=== PATIENT | female | born 1995 | race Caucasian/White ===

== ENCOUNTER 2016-10-15 00:40 | Emergency (ER) | payer BC ==
[~2016-10-15] VITALS: Ht 154.9 cm; Wt 54.0 kg
[2016-10-15 00:50] VITALS: TEMP 36.8; Ht 154.9 cm; Wt 54.0 kg
[2016-10-15] MEDS ORDERED: ACETAMINOPHEN 500 MG TAB PO STA (01:13)
[2016-10-15] MEDS ORDERED: ONDANSETRON HOME PACK 4MG OD TAB PO ONE (01:15)
[2016-10-15 01:29] VITALS: BP 123/74; PULSE 70; O2SAT 98
--- NOTE | 2016-10-15 03:45 | EMERGENCY ROOM VISIT NOTE ---
History First contact with patient: 00:57 Chief Complaint: HEAD INJURY (MINOR) Stated Complaint: POSSIBLE CONCUSSION History of Present Illness The patient is a 21 year old female who presents to the Emergency Room with complaints of head injury tonight. Patient states she accidentally hit her head on the thermostat while playing around with her friends. She felt nauseous and threw up twice. She's had no more vomiting. Patient complains of mild headache, 4-10 to the left temporal region where she was hit at. This was an accident. Nothing makes it better or worse. Patient denies loss of conscious, facial pain, dental pain, vision palms, neck pain, chest pain, dyspnea, numbness, tingling. No other complains per patient. Review of Systems See HPI for pertinent positives & negatives. A total of 10 systems reviewed and were otherwise negative. Past Medical/Surgical History None Social History Smoking Status: Current Every Day Smoker Alcohol Use: none Drug Use: none Marital Status: single Occupation Status: [employer] student Current/Historical Medications No Active Prescriptions or Reported Meds Allergies Coded Allergies: No Known Allergies (Unverified , 10/15/16) Physical Exam Vital Signs Date Time Temp Pulse Resp B/P Pulse Ox O2 Delivery O2 Flow Rate FiO2 10/15/16 01:29 70 16 123/74 98 10/15/16 00:50 36.8 104 20 112/71 96 Room Air Pain Rating (0-10): 0 Physical Exam VITALS: Vitals are noted on the nurse's note and reviewed by myself. Vital signs stable. GENERAL: Pleasant female, in no acute distress, nondiaphoretic, well-developed well-nourished. SKIN: The skin was without rashes, erythema, edema, or bruising. There is no tenting of the skin. Capillary reflex less than 2 seconds. HEAD: Normocephalic atraumatic. EARS: External auditory canals clear, tympanic membranes pearly meehan without erythema or effusion bilaterally. EYES: Pupils equal round and reactive to light and accommodation. Conjunctivae without injection, sclerae without icterus. Extraocular movements intact. NOSE: Patent, turbinates without inflammation or discharge. No sinus tenderness. MOUTH: Mucous membranes moist. Pharynx without erythema or exudate. Uvula midline. Airway patent. Tongue does not deviate. NECK: Supple without nuchal rigidity. No lymphadenopathy. No thyromegaly. Cervical spine is nontender. No JVD. HEART: Regular rate and rhythm without murmurs gallops or rubs. LUNGS: Clear to auscultation bilaterally without wheezes, rales or rhonchi. No dullness to percussion. No retractions or accessory muscle use. ABDOMEN: Positive bowel sounds x 4. Normal tympanic percussion. Soft, nontender, without masses or organomegaly. Agarwal sign negative. No guarding or rebound tenderness. MUSCULOSKELETAL: No muscle atrophy, erythema, or edema noted. NEURO: Patient was alert and oriented to person place and time. Normal sensation to light and sharp touch. No focal neurological deficits. Cranial nerves II through XII grossly intact. No pronator drift. Cerebellar exam intact Medical Decision & Procedures Medications Administered Medications (Trade) Dose Ordered Sig/Tramaine Route Start Time Stop Time Status Last Admin Dose Admin Acetaminophen (Tylenol Tab) 1,000 mg NOW STAT PO 10/15/16 01:13 10/15/16 01:14 DC 10/15/16 01:13 1,000 MG ED Course Prior records/ancillary studies reviewed. Triage Nursing notes reviewed. Additional history obtained from friends. The patient's history was concerning for traumatic head injury Differential diagnosis: Etiologies such as concussion, contusion, fracture, subdural hematoma, epidural hematoma, intraparenchymal hemorrhage, as well as other traumatic pathologies were entertained. Physical examination findings: As above. ER treatment provided: P.o. Tylenol Zofran ODT On reassessment the patient felt better. Diagnostics interpreted by me: Deferred It appears the patient has a concussion. I discussed the risks and the benefits of CT scanning. Clinically the patient is doing well and does not appear to have a significant underlying injury. The pt felt comfortable with conservative observation with the understanding if the clinical picture change that imaging may be necessary at a later time. I gave my usual and customary discussion regarding this issue. Patient was advised if symptoms persist to follow-up concussion clinic here in town or here in the ER sooner for headache, fevers, vomiting, worsening signs or symptoms or as needed. Patient was neurovascularly and neurologically intact. She is well-appearing. She was counseled on head injury signs and symptoms and verbalized understanding. By the evaluation outlined above emergent etiologies such as fracture, subdural hematoma, epidural hematoma, intraparenchymal hemorrhage, as well as others were deemed relatively unlikely. The pt informed about the findings as listed above. All questions were answered and pleased with the treatment. Return instructions were outlined and the patient was discharged in stable condition. Outpatient Prescription Management: gina Referral: The patient was referred back to their primary care physician for follow-up in 2 to 3 days for a recheck of the current condition. Medical Decision As above Impression Primary Impression: Closed head injury Departure Information Dispostion Home / Self-Care Condition FAIR Prescriptions No Active Prescriptions or Reported Meds Forms HOME CARE DOCUMENTATION FORM, School Instructions, Return To School: 1 day IMPORTANT VISIT INFORMATION Patient Instructions [facility], ED Head Injury Closed Additional Instructions Read head injury handout and return for any symptoms. Tylenol 1000 mg as needed for pain (Maximum 3000 mg Tylenol in 24 hr period). Avoid alcohol and contact sports/activities for one week and follow up with family doctor prior to returning to these activities if still symptomatic. Ice and elevate head. If your symptoms persist more than a week then follow up with the concussion clinic. Call [phone]. Return to ER sooner for headache, fevers, confusion, worsening signs or symptoms or as needed. School Instructions Return To School: 1 day Problem Qualifiers Primary Impression: Closed head injury Encounter type: initial encounter Qualified Codes: S09.90XA - Unspecified injury of head, initial encounter
== END 2016-10-15 01:30 | disposition home or self-care (01) ==
LOC: C.EDB 00:40 → C.EDC 01:30
DX: S09.90XA Unspecified injury of head, initial encounter (principal); R11.2 Nausea with vomiting, unspecified; W22.8XXA Striking against or struck by other objects, initial encounter; F17.200 Nicotine dependence, unspecified, uncomplicated

== ENCOUNTER → 2016-12-31 | Outpatient (CLI) | payer BC ==
[2016-12-31 12:14] LABS: BASO % 0.5 %; BASO ABS # 0.03 K/uL (0-0.2); COMPLETE YES; EOS % 2.5 %; HEMATOCRIT 37.5 % (37-47); IG% 0.2 %; LYMPH % 34.7 %; LYMPH ABS # 1.91 K/uL (1.2-3.4); MEAN CELL VOLUME 90.4 fL (80-100); MEAN CORPUSCULAR HEMOGLOBIN 29.9 pg (25-34); MEAN CORPUSCULAR HGB CONC 33.1 g/dl (32-36); NEUT % 54.1 %; PLATELET COUNT 208 K/uL (130-400); RED BLOOD COUNT 4.15 M/uL (4.2-5.4); WHITE BLOOD COUNT 5.51 K/uL (4.8-10.8)
[2016-12-31 12:26] LABS: URINE APPEARANCE CLEAR (CLEAR); URINE BILIRUBIN NEG (NEG); URINE COLOR YELLOW; URINE EPITHELIAL CELL AUTO 20-30 /lpf (0-5); URINE NITRITE NEG (NEG); URINE SPECIFIC GRAVITY 1.021 (1.000-1.030); UROBILINOGEN NEG (NEG)
[2016-12-31 12:40] LABS: MANUAL MICROSCOPIC REQUIRED? NO; REVIEW REQ? NO
[2016-12-31 13:55] LABS: LYME DISEASE AB IGG NEG (NEG)
[2016-12-31 13:58] LABS: LYME DISEASE AB IGM NEG (NEG)
[2016-12-31 14:16] LABS: ALT/SGPT 23 U/L (12-78); AST/SGOT 11 U/L (15-37); BLOOD UREA NITROGEN 12 mg/dl (7-18); BUN/CREATININE RATIO 17.1 (10-20); CALCIUM 8.6 mg/dl (8.5-10.1); CARBON DIOXIDE 24 mmol/L (21-32); CHLORIDE 108 mmol/L (98-107); CHOLESTEROL 110 mg/dl (0-200); CREATININE 0.72 mg/dl (0.60-1.20); GLUCOSE 69 mg/dl (70-99); SODIUM 139 mmol/L (136-145); TRIGLYCERIDES 59 mg/dl (0-150); VERY LOW DENSITY LIPOPROT CALC 12 mg/dl
[2016-12-31 14:21] LABS: ALB/GLOB RATIO 1.3 (0.9-2); ALKALINE PHOSPHATASE 54 U/L (45-117); FERRITIN 18.2 ng/ml (8.0-388.0); HDL CHOLESTEROL 56 mg/dl; LDL CHOLESTEROL CALCULATED 42 mg/dl
== END | disposition home or self-care (01) ==
LOC: C.LAB1850 09:23
DX: R53.83 Other fatigue (principal); Z13.220 Encounter for screening for lipoid disorders

== ENCOUNTER → 2017-08-11 | Outpatient (CLI) | payer BC ==
--- NOTE | 2017-08-11 09:15 | DIAGNOSTIC IMAGING REPORT ---
GALLBLADDER-ABD LIMITED CLINICAL HISTORY: GALLBLADDER-ABD LIMITED nausea. Pain. TECHNIQUE: Ultrasound COMPARISON STUDY: None FINDINGS: Normal gallbladder. Common bile duct 4 mm. Liver is uniform. Pancreas and right kidney are unremarkable. IMPRESSION: Normal study The above report was generated using voice recognition software. It may contain grammatical, syntax or spelling errors. Electronically signed by: Jimbo Gama M.D. 08/11/2017 9:13 AM Dictated Date/Time: 08/11/2017 9:13 AM
== END | disposition home or self-care (01) ==
LOC: C.ULTR 08:39
DX: R10.9 Unspecified abdominal pain (principal); R11.0 Nausea

== ENCOUNTER → 2017-09-09 | Outpatient (CLI) | payer BC ==
[~2017-09-09] MED LIST: SINCALIDE INJ 1.1 MCG in SODIUM CHLORIDE 0.9% 100ML 100 ML IV SCH
--- NOTE | 2017-09-09 10:04 | DIAGNOSTIC IMAGING REPORT ---
NUCLEAR MEDICINE HEPATIC BILIARY SCAN WITH EJECTION FRACTION ANALYSIS CLINICAL HISTORY: Persistent abdominal pain COMPARISON STUDY: Gallbladder ultrasound dated August 11, 2017 FINDINGS: The patient was injected with 5.5 mCi of technetium 99m Choletec. Sequential anterior imaging was performed. The gallbladder was first visualized on the 10 minute image. At 1 hour, the patient was administered 1.1 mcg of sincalide utilizing a 30 minute infusion. The gallbladder ejection fraction was normal measuring 97%. There was normal passage of activity into small bowel. IMPRESSION: Normal study. No evidence of cystic duct obstruction. Normal gallbladder ejection fraction of 97%. Electronically signed by: Gil Acevedo M.D. 09/09/2017 10:03 AM Dictated Date/Time: 09/09/2017 10:00 AM
== END | disposition home or self-care (01) ==
LOC: C.NUCL 07:37
DX: R10.9 Unspecified abdominal pain (principal)

== ENCOUNTER 2017-10-14 13:13 | Emergency (ER) | payer BC ==
[~2017-10-14] VITALS: Ht 157.5 cm; Wt 56.2 kg
[2017-10-14 13:21] VITALS: Ht 157.5 cm; Wt 56.2 kg
[2017-10-14 14:53] VITALS: TEMP 36.7
[2017-10-14] MEDS ORDERED: FERR1TAB23 PO (15:31)
[2017-10-14] MEDS ORDERED: CHOL1000 PO (15:32)
[2017-10-14] MEDS ORDERED: PRLSR20 PO (15:33)
[2017-10-14 15:51] LABS: BASO % 0.5 %; BASO ABS # 0.03 K/uL (0-0.2); EOS % 1.7 %; HEMATOCRIT 38.7 % (37-47); HEMOGLOBIN 13.4 g/dL (12.0-16.0); IG# 0.01 K/uL (0.00-0.02); LYMPH % 35.8 %; LYMPH ABS # 2.07 K/uL (1.2-3.4); MEAN CELL VOLUME 89.4 fL (80-100); MEAN CORPUSCULAR HEMOGLOBIN 30.9 pg (25-34); MEAN CORPUSCULAR HGB CONC 34.6 g/dl (32-36); MEAN PLATELET VOLUME 10.9 fL (7.4-10.4); MONO % 9.5 %; MONO ABS # 0.55 K/uL (0.11-0.59); NEUT % 52.3 %; NEUT ABS # 3.02 K/uL (1.4-6.5); PLATELET COUNT 217 K/uL (130-400); RED CELL DISTRIBUTION WIDTH CV 12.4 % (11.5-14.5); RED CELL DISTRIBUTION WIDTH SD 40.6 fL (36.4-46.3); WHITE BLOOD COUNT 5.78 K/uL (4.8-10.8)
[2017-10-14 16:00] LABS: PTT PATIENT 25.7 SECONDS (21.0-31.0)
[2017-10-14] MEDS ORDERED: KETOROLAC TROMETHAMINE 30 MG/ML VIAL IV STA (16:00)
[2017-10-14 16:10] LABS: CREATININE 0.72 mg/dl (0.60-1.20); POTASSIUM 3.5 mmol/L (3.5-5.1)
--- NOTE | 2017-10-14 16:19 | DIAGNOSTIC IMAGING REPORT ---
CHEST 2 VIEWS ROUTINE HISTORY: 22 years-old Female cp eval for pna acute atypical chest pain with concern for pneumonia. COMPARISON: None available TECHNIQUE: PA and lateral views of the chest FINDINGS: Cardiomediastinal and hilar silhouettes are within normal limits. There is no pneumothorax, pleural effusion, focal airspace consolidation or overt pulmonary edema. The bones of the chest appear grossly intact. IMPRESSION: No acute process. The above report was generated using voice recognition software. It may contain grammatical, syntax or spelling errors. Electronically signed by: Dakota Chapman M.D. 10/14/2017 4:18 PM Dictated Date/Time: 10/14/2017 4:16 PM
[2017-10-14] MEDS ORDERED: OPTIRAY 320 IV PRN (19:00)
--- NOTE | 2017-10-14 19:11 | DIAGNOSTIC IMAGING REPORT ---
(CHEST FOR PE) ANGIO WITH CT DOSE: 170.75 mGy.cm HISTORY: 22 years-old Female with . Acute shortness of breath and atypical chest pain with concern for pneumonia. TECHNIQUE: Multiple CTA images of the chest were obtained after the intravenous administration of 81 ml Optiray 320. Coronal and sagittal MIPS were obtained from the axial data set and were submitted for review. A dose lowering technique was utilized adhering to the principles of ALARA. COMPARISON: Chest radiograph of same day FINDINGS: CTA: Heart is normal in size without pericardial effusion. Left heart structures are not well opacified. No aortic aneurysm or dissection identified. The imaged great vessels appear unremarkable and are patent. The pulmonary arterial tree is opacified to level of the proximal subsegmental branches and demonstrates no focal filling defects to suggest pulmonary thromboembolic disease. CT CHEST: Thyroid is homogeneous without dominant nodule. No pathologic adenopathy of the chest identified. Residual thymic tissue of the anterior mediastinum. Imaged breast parenchyma appears unremarkable. No pneumothorax, pleural effusion or focal airspace consolidation. Central airways are patent. Minimal linear subsegmental bibasilar atelectasis. No acute abnormality of the imaged upper abdomen. Bones appear intact. IMPRESSION: 1. No acute intrathoracic abnormality identified, specifically no acute aortic pathology or evidence of pulmonary thromboembolic disease. 2. No focal airspace consolidation or pathologic adenopathy. The above report was generated using voice recognition software. It may contain grammatical, syntax or spelling errors. Electronically signed by: Dakota Chapman M.D. 10/14/2017 7:10 PM Dictated Date/Time: 10/14/2017 7:04 PM
[2017-10-14 19:44] VITALS: BP 97/55; PULSE 63; O2SAT 97
--- NOTE | 2017-10-14 21:43 | EMERGENCY ROOM VISIT NOTE ---
History Report prepared by Kelechi: Ras Clifford Under the Supervision of: Dr. Rafat Vigil M.D. First contact with patient: 15:04 Chief Complaint: CHEST PAIN Stated Complaint: CHEST TIGHTNESS AND SHORTNESS OF BREATH Nursing Triage Summary: Chest pain post endoscopy History of Present Illness The patient is a 22 year old female who presents to the Emergency Room with complaints of constant chest pain and shortness of breath that she first noticed after an endoscopy procedure performed on October 09, 5 days ago. The patient notes that she had the endoscopy performed to search for Ulcers secondary to chronic right mid abdominal pain. The procedure did find 2 peripheral ulcers and she was started on Prilosec. The patient states that she woke up from the procedure with chest pain that was localized to the center of her chest. She describes the sensation as a "constant tight feeling." The pain does not radiate anywhere, but she does note that her shortness of breath is worsened with exertion. She has been becoming unusually short of breath with walking short distances. The patient denies any previous episodes of such symptoms. She also denies any history of clotting or control use. She does not have any family history of clotting disorders or early onset cardiac disease either. There has not been any cough, fever, black/tarry stools, vomiting, or diarrhea. The patient does have a history of anemia. Her LNMP was on September 23. Her grandmother had a DVT after shoulder surgery. Source of History: patient Onset: 5 days COMMERCIAL FIELD INSPECTOR Position: chest (Centralized) Quality: other ("tight") Timing: constant Modifying Factors (Worsening): exertion Associated Symptoms: + SOB, + abdominal pain, No nausea, No vomiting, No melena, No diarrhea Review of Systems See HPI for pertinent positives & negatives. A total of 10 systems reviewed and were otherwise negative. Past Medical & Surgical Medical Problems: (1) Anemia Anemia Social History Smoking Status: Never Smoker Alcohol Use: none Drug Use: none Marital Status: single Occupation Status: [employer] student Current/Historical Medications Scheduled Cholecalciferol (Vitamin D3), 3,000 UNITS PO DAILY Ferrous Sulfate (Iron), 325 MG PO DAILY Omeprazole (Prilosec), 20 MG PO DAILY Allergies Coded Allergies: No Known Allergies (Unverified , 10/15/16) Physical Exam Vital Signs Date Time Temp Pulse Resp B/P (MAP) Pulse Ox O2 Delivery O2 Flow Rate FiO2 4/10/18 19:44 63 18 97/55 97 Room Air 10/14/17 18:19 62 10/14/17 18:11 66 16 98/49 98 10/14/17 16:01 61 18 89/48 98 Room Air 10/14/17 14:53 36.7 76 16 93/60 97 Room Air 10/14/17 13:21 36.8 68 20 95/60 98 Room Air Physical Exam Constitutional: Vital signs reviewed. Eyes: Pupils are equal round reactive to light. Conjunctiva are noninjected. ENT: Pharynx is clear without erythema or exudate. Mucous membranes are moist. Neck supple without meningeal signs. Respiratory: Clear to auscultation bilaterally. Breath sounds are equal bilaterally. Cardiovascular: Regular rate and rhythm. No rubs or gallops. GI: Soft, nondistended and nontender. Bowel sounds are present. Musculoskeletal: No peripheral edema. No lower extremity tenderness. There is tenderness over the anterior chest wall. This is the same pain as she has been having. Integumentary: No cyanosis. Neurological: The patient is awake and alert. No focal deficits. Psychiatric: Normal affect. Medical Decision & Procedures ER Provider Diagnostic Interpretation: Radiology results as stated below per my review and the radiologist's interpretation: CHEST 2 VIEWS ROUTINE HISTORY: 22 years-old Female cp eval for pna acute atypical chest pain with concern for pneumonia. COMPARISON: None available TECHNIQUE: PA and lateral views of the chest FINDINGS: Cardiomediastinal and hilar silhouettes are within normal limits. There is no pneumothorax, pleural effusion, focal airspace consolidation or overt pulmonary edema. The bones of the chest appear grossly intact. IMPRESSION: No acute process. The above report was generated using voice recognition software. It may contain grammatical, syntax or spelling errors. Electronically signed by: Dakota Chapman M.D. 10/14/2017 4:18 PM Dictated Date/Time: 10/14/2017 4:16 PM (CHEST FOR PE) ANGIO WITH CT DOSE: 170.75 mGy.cm HISTORY: 22 years-old Female with . Acute shortness of breath and atypical chest pain with concern for pneumonia. TECHNIQUE: Multiple CTA images of the chest were obtained after the intravenous administration of 81 ml Optiray 320. Coronal and sagittal MIPS were obtained from the axial data set and were submitted for review. A dose lowering technique was utilized adhering to the principles of ALARA. COMPARISON: Chest radiograph of same day FINDINGS: CTA: Heart is normal in size without pericardial effusion. Left heart structures are not well opacified. No aortic aneurysm or dissection identified. The imaged great vessels appear unremarkable and are patent. The pulmonary arterial tree is opacified to level of the proximal subsegmental branches and demonstrates no focal filling defects to suggest pulmonary thromboembolic disease. CT CHEST: Thyroid is homogeneous without dominant nodule. No pathologic adenopathy of the chest identified. Residual thymic tissue of the anterior mediastinum. Imaged breast parenchyma appears unremarkable. No pneumothorax, pleural effusion or focal airspace consolidation. Central airways are patent. Minimal linear subsegmental bibasilar atelectasis. No acute abnormality of the imaged upper abdomen. Bones appear intact. IMPRESSION: 1. No acute intrathoracic abnormality identified, specifically no acute aortic pathology or evidence of pulmonary thromboembolic disease. 2. No focal airspace consolidation or pathologic adenopathy. The above report was generated using voice recognition software. It may contain grammatical, syntax or spelling errors. Electronically signed by: Dakota Chapman M.D. 10/14/2017 7:10 PM Dictated Date/Time: 10/14/2017 7:04 PM Laboratory Results 10/14/17 15:34 Red Blood Count 4.33, Mean Corpuscular Volume 89.4, Mean Corpuscular Hemoglobin 30.9, Mean Corpuscular Hemoglobin Concent 34.6, Mean Platelet Volume 10.9, Neutrophils (%) (Auto) 52.3, Lymphocytes (%) (Auto) 35.8, Monocytes (%) (Auto) 9.5, Eosinophils (%) (Auto) 1.7, Basophils (%) (Auto) 0.5, Neutrophils # (Auto) 3.02, Lymphocytes # (Auto) 2.07, Monocytes # (Auto) 0.55, Eosinophils # (Auto) 0.10, Basophils # (Auto) 0.03 10/14/17 15:34 Test 10/14/17 15:34 10/14/17 15:42 10/14/17 15:54 White Blood Count 5.78 K/uL (4.8-10.8) Red Blood Count 4.33 M/uL (4.2-5.4) Hemoglobin 13.4 g/dL (12.0-16.0) Hematocrit 38.7 % (37-47) Mean Corpuscular Volume 89.4 fL (80-100) Mean Corpuscular Hemoglobin 30.9 pg (25-34) Mean Corpuscular Hemoglobin Concent 34.6 g/dl (32-36) Platelet Count 217 K/uL (130-400) Mean Platelet Volume 10.9 fL (7.4-10.4) Neutrophils (%) (Auto) 52.3 % Lymphocytes (%) (Auto) 35.8 % Monocytes (%) (Auto) 9.5 % Eosinophils (%) (Auto) 1.7 % Basophils (%) (Auto) 0.5 % Neutrophils # (Auto) 3.02 K/uL (1.4-6.5) Lymphocytes # (Auto) 2.07 K/uL (1.2-3.4) Monocytes # (Auto) 0.55 K/uL (0.11-0.59) Eosinophils # (Auto) 0.10 K/uL (0-0.5) Basophils # (Auto) 0.03 K/uL (0-0.2) RDW Standard Deviation 40.6 fL (36.4-46.3) RDW Coefficient of Variation 12.4 % (11.5-14.5) Immature Granulocyte % (Auto) 0.2 % Immature Granulocyte # (Auto) 0.01 K/uL (0.00-0.02) Prothrombin Time 10.5 SECONDS (9.0-12.0) Prothromb Time International Ratio 1.0 (0.9-1.1) Activated Partial Thromboplast Time 25.7 SECONDS (21.0-31.0) Partial Thromboplastin Ratio 1.0 Anion Gap 6.0 mmol/L (3-11) Est Creatinine Clear Calc Drug Dose 97.8 ml/min Estimated GFR () 138.7 Estimated GFR (Non- 119.7 BUN/Creatinine Ratio 12.4 (10-20) Calcium Level 9.0 mg/dl (8.5-10.1) Bedside D-Dimer 109 ng/mlFEU (0-450) Bedside Troponin I < 0.030 ng/ml (0-0.045) Laboratory results as reviewed by me. Medications Administered Medications (Trade) Dose Ordered Sig/Tramaine Route Start Time Stop Time Status Last Admin Dose Admin Ketorolac Tromethamine (Toradol Inj) 10 mg NOW STAT IV 10/14/17 16:00 10/14/17 16:01 DC 10/14/17 16:07 10 MG ECG Per My Interpretation Indication: chest pain Rate (beats per minute): 69 Findings: other (No SHIRA No PVCs) ED Course 1507: The patient was evaluated in room B3. A complete history and physical exam was performed. 1600: Ordered Toradol 10 mg IV. 1707: The patient states that her chest pain has improved with Toradol. I discussed the test results with the patient and her mother. 1723: I discussed the option of a CT of the chest with the patient. I elaborated the risks and benefits of the study. The patient does not currently want the CT, but she will discuss it with her mother. 1728: I discussed the case with Dr. Mar[facility]. He states that there is nothing GI nguyen that he could think of to cause the patient 's symptoms. 1804: I discussed the case with the patient and her mother at this time. They agreed to the CT scan. Mom says that her grandmother had a DVT after a procedure. She also states that the patient is normally hypotensive. 1830: Patient is still waiting for IV Team at this time. Medical Decision This is a 22-year-old female presents with chest pain and shortness of breath after endoscopy. Differential diagnosis includes pneumomediastinum, esophageal rupture, pulmonary embolism, costochondritis, pleurisy, esophagitis. I did perform a limited focused review of portions of the patient's old chart on the electronic medical record. The patient has had no recent pertinent visits to this hospital. I did evaluate the patient as noted above. Patient is presenting with chest pain with dyspnea on exertion after an endoscopy 5 days ago. She had no symptoms prior to that. Her only risk factor for pulmonary embolism is her family history. She does have reproducible chest pain on examination. She states it is the exact pain that she has been having for the past 5 days. IV access was established. The patient was placed on a continuous cardiac exercise physiologist. I did order and personally review the patient's 12-lead EKG and chest x-ray as described above. Her twelve-lead EKG is unremarkable. Chest x-ray does not show any pneumomediastinum or infiltrate. I did order and review the patient's blood work as noted in the electronic medical record. Troponin and d- dimer are negative. I did treat patient with Toradol IV. I did reevaluate the patient. She states she feels better after Toradol. The chest pain appears to be musculoskeletal but I cannot explain the dyspnea with exertion that she has been experiencing. I did discuss the case with the production material coordinator on-call who stated that he was not concerned for any GI etiology for her chest pain. He did express some concern for possible PE. I did have a further discussion with the patient and her mother regarding risks and benefits of CT scanning. After deliberation with them they did agree to CAT scan of the chest to rule out PE. I did order a CT of the chest. I did review the images myself as well as the radiology report as described above. No acute abnormality was found. I did discuss the test results with the patient. She was advised to follow-up with [facility] for further evaluation. She was discharged in good condition. Medication Reconcilliation Current Medication List: was personally reviewed by me Blood Pressure Screening Patient's blood pressure: Low blood pressure Consults Time Called: 1722 Consulting Physician: Dr. [facility] Returned Call: [phone] I discussed the case with Dr. [facility]. He states that there is nothing GI based that he could think of to cause the patient's current symptoms. Impression Primary Impression: Acute chest pain Additional Impression: Dyspnea on exertion Scribe Attestation The scribe's documentation has been prepared under my direct and personally reviewed by me in its entirety. I confirm that the note above accurately reflects all work, treatment, procedures, and medical decision making performed by me. Departure Information Dispostion Home / Self-Care Referrals Kevin Velazquez Jr,D.O. (PCP) Forms HOME CARE DOCUMENTATION FORM, IMPORTANT VISIT INFORMATION Patient Instructions My [facility] Additional Instructions You have been examined and treated today on an emergency basis only. This is not a substitute for, or an effort to provide, complete comprehensive medical care. It is impossible to recognize and treat all injuries or illnesses in a single emergency department visit. It is therefore important that you follow up closely with your physician or [facility]. Call as soon as possible for an appointment. Return for worsening symptoms or if you develop fever, vomiting, lightheadedness, difficulty eating or drinking, or any other concerning symptoms. Problem Qualifiers
== END 2017-10-14 19:52 | disposition home or self-care (01) ==
LOC: C.EDB 13:16
DX: R07.9 Chest pain, unspecified (principal); R06.00 Dyspnea, unspecified; D64.9 Anemia, unspecified; Z79.899 Other long term (current) drug therapy

== ENCOUNTER 2017-11-26 05:38 | Day surgery (SDC) | payer BC ==
[2017-11-19 16:22] VITALS: Ht 157.5 cm; Wt 56.4 kg
[2017-11-26] VITALS (11 sets, daily range): BP systolic 92–104; BP diastolic 52–70; PULSE 59–98; TEMP 36.6–36.7; O2SAT 97–100
[~2017-11-26] VITALS: Ht 157.5 cm; Wt 56.4 kg
[~2017-11-26 05:38] MED LIST changes: +CHOL1000 PO; +FERR1TAB23 PO; +PRLSR20 PO; -SINCALIDE INJ 1.1 MCG in SODIUM CHLORIDE 0.9% 100ML 100 ML IV SCH
[2017-11-26] MEDS ORDERED: LACTATED RINGER'S 1000ML 1,000 ML IV SCH (06:00)
[2017-11-26] MEDS ORDERED: CEFUROXIME IV 1,500 MG in DEXTROSE 5% 100ML IV SCH (06:00)
[2017-11-26] MEDS ORDERED: CONRAY 60% 50 ML VIAL ONE (06:33)
[2017-11-26] MEDS ORDERED: BUPIVACAINE 0.5 % 5 MG/1 ML PF 10ML VIAL ONE ×2 (06:34→06:51)
--- NOTE | 2017-11-26 06:48 | History & Physical Bridge Note ---
H&P Re-Evaluation Bridge Note: I have examined the patient, reviewed the History & Physical and in the interval since the performance of the History & Physical I have noted the following changes of clinical significance: No changes noted
[2017-11-26] MEDS ORDERED: DEXAMETHASONE SOD INJ 4 MG/ML VIAL ONE (06:52)
[2017-11-26] MEDS ORDERED: LIDOCAINE HCL 2% 2 ML VIAL (20MG/ML) ONE (06:52)
[2017-11-26] MEDS ORDERED: PROPOFOL IV EMULSION 10 MG/ML 20 ML VIAL ONE (06:52)
[2017-11-26] MEDS ORDERED: FENTANYL CITRATE INJ 50 MCG/1 ML 2 ML VIAL ONE ×2 (06:52→07:27)
[2017-11-26] MEDS ORDERED: ONDANSETRON INJ 2 MG/ML 2 ML VIAL ONE ×2 (06:52→07:26)
[2017-11-26] MEDS ORDERED: NEOSTIGMINE METHYLSULFATE 5 MG/5 ML SYR ONE (06:52)
[2017-11-26] MEDS ORDERED: GLYCOPYRROLATE INJ 0.2 MG/ML VIAL ONE ×2 (06:52→07:44)
[2017-11-26] MEDS ORDERED: MIDAZOLAM HCL 1 MG/ML 2ML VIAL ONE (06:52)
[2017-11-26] MEDS ORDERED: ROCURONIUM BROMIDE 10 MG/ML 5 ML VIAL ONE (07:26)
[2017-11-26] MEDS ORDERED: LARYING-O-JET KIT (LTA) ONE (07:26)
--- NOTE | 2017-11-26 07:42 | [facility] Operative Report ---
Operative Report Operative Date November 26, 2017. Pre-Operative Diagnosis Biliary Colic Post-Operative Diagnosis Biliary Colic Procedure(s) Performed Laparoscopic Cholecystectomy Surgeon Dr Bass Trading Floor Operator Surgeon(s) Jose M Recio PA-C Estimated Blood Loss 5 cc Findings narrow cystic duct - fibrotic Specimens A: Gallbladder and Contents Drains None Anesthesia Type General Complication(s) none Disposition Recovery Room / PACU I attest to the content of the Intraoperative Record and any orders documented therein. Any exceptions are noted below.
[2017-11-26] MEDS ORDERED: HYDR-5688 PO (07:44)
[2017-11-26] MEDS ORDERED: PROM25TA9 PO (07:44)
[2017-11-26] MEDS ORDERED: HYDROCODONE/ACETAMIN 5/325MG TAB PO PRN ×3 (07:45→11:30)
[2017-11-26] MEDS ORDERED: ONDANSETRON INJ 2 MG/ML 2 ML VIAL IV PRN ×3 (07:45→11:30)
[2017-11-26] MEDS ORDERED: KETOROLAC TROMETHAMINE 30 MG/ML VIAL ONE (07:46)
--- NOTE | 2017-11-26 07:47 | Discharge Instructions ---
Discharge Instructions Date of Service November 26, 2017. Visit Reason for Visit: Biliary Dyskinesia Discharge Discharge Diagnosis / Problem: biliary colic Discharge Goals Goal(s): Decrease discomfort, Improve function, Improve disease control Activity Recommendations Activity Limitations: as noted below Lifting Limitations: no more than 25 pounds (for 3 weeks) Exercise/Sports Limitations: until after follow-up appointment May Resume Sexual Activity: when tolerated Shower/Bathe: tomorrow Driving or Machine Use: resume 3 days after discharge Anesthesia . Post Anesthesia Instructions: If you have had General Anesthesia or IV Sedation: * Do not drive today. * Resume driving when surgeon permits. * Do not make important decisions or sign legal documents today. * Call surgeon for: 1. Temperature elevations greater than 101 degrees F. 2. Uncontrollable pain. 3. Excessive bleeding. 4. Persistent nausea and vomiting. 5. Medication intolerance (nausea, vomiting or rash). * For nausea and vomiting use only clear liquids such as: tea, soda, bouillon until nausea subsides, then gradually increase diet as tolerated. * If you have any concerns or questions, call your surgeon's office. If physician is unavailable and it is an emergency, call 911 or go to the nearest emergency room. . Instructions / Follow-Up Instructions / Follow-Up SPECIAL CARE INSTRUCTIONS: * Cover incisions and change daily for comfort/drainage. May leave uncovered with dermabond * May use ibuprofen for pain as tolerated. * Expect some swelling and bruising. Call your doctor if: * Temperature above 101 degrees * Pain not relieved by pain medicine ordered * There is increased drainage or redness from any incision * You have any unanswered questions or concerns [phone]. FOLLOW UP VISIT: If not already scheduled, please call the office for a follow-up visit. for 2 weeks- no sutures to remove OFFICE PHONE NUMBER: Dr. Bass Office Diet Recommendations Recommended Home Diet: resume previous diet Procedures Procedures Performed: Laparoscopic Cholecystectomy Pending Studies Studies pending at discharge: no Medical Emergencies . Who to Call and When: Medical Emergencies: If at any time you feel your situation is an emergency, please call 911 immediately. . Non-Emergent Contact Non-Emergency issues call your: Primary Care Provider, Surgeon . . "Provider Documentation" section prepared by Kevin Bass. .
--- NOTE | 2017-11-26 08:15 | OPERATIVE REPORT ---
DATE OF OPERATION: 11/26/2017 NAME OF OPERATION: Laparoscopic cholecystectomy. PREOPERATIVE DIAGNOSIS: Biliary colic. POSTOPERATIVE DIAGNOSIS: Biliary colic. STAFF SURGEON: Dr. Kevin Bass MANAGEMENT SUPERVISOR: Satya Recio PA-C ANESTHESIA: General. PROCEDURE IN DETAIL: The patient was brought in the operating room and placed on the operating room table in the supine position. Pneumatic stockings and orogastric tube were placed. 0.5% plain Marcaine was used to anesthetize the skin and subcutaneous tissue on the upper part of the umbilicus. This was after appropriate prepping and draping. A small incision was made in this area carrying dissection down to the fascia, placing a Veress needle producing pneumoperitoneum. An 11-mm port placed at this level and then under visualization, three 5 mm ports placed, 1 cephalad and 2 laterally. The gallbladder was grasped and retracted. It appeared relatively normal. It was aspirated of bile. Dissection was carried out at the lilli hepatis showing evidence of some fibrosis and scar tissue and a very small cystic duct. The cystic duct and cystic artery were identified. The duct was clipped and transected. The cystic artery clipped and transected, then the gallbladder dissected away from the liver bed. Again, there was some thickened fibrotic tissue in the area of the lilli hepatis. The gallbladder was removed and then placed into an Endobag. After appropriate hemostasis and irrigation, the Endobag was removed through the umbilical site. All ports were then removed. The umbilical fascia closed using interrupted 0 Vicryl suture, subcutaneous tissue reapproximated using 2-0 plain suture, and then the skin reapproximated using subcuticular 4-0 Monocryl and Dermabond. My inventory control assistant helped with prepping, draping, exposure of the gallbladder, removal of the gallbladder, and closure of the wounds. I attest to the content of the Intraoperative Record and any orders documented therein. Any exception s are noted below.
[2017-11-26] MEDS ORDERED: ATROPINE SULFATE 0.1 MG/ML 5ML SYR IV PRN (09:00)
[2017-11-26] MEDS ORDERED: FENTANYL CITRATE INJ 50 MCG/1 ML 2 ML VIAL IV PRN (09:00)
--- NOTE | 2017-11-26 09:27 | Anesthesiology Progress Note ---
Anesthesia Post Op Note Date & Time November 26, 2017 at 09:26 Vital Signs Pain Intensity: 0 Vital Signs Past 12 Hours Date Time Temp Pulse Resp B/P (MAP) Pulse Ox O2 Delivery O2 Flow Rate FiO2 11/26/17 09:05 36.6 63 16 95/62 98 Room Air 11/26/17 08:56 55 16 104/60 99 11/26/17 08:56 36.8 55 16 11/26/17 08:51 55 10 106/62 99 11/26/17 08:51 55 10 11/26/17 08:46 59 18 106/55 99 11/26/17 08:46 59 18 11/26/17 08:45 53 11/26/17 08:45 54 16 100 11/26/17 08:41 107/59 11/26/17 08:40 60 21 11/26/17 08:40 60 21 100 11/26/17 08:36 111/61 11/26/17 08:35 60 16 100 11/26/17 08:35 61 16 11/26/17 08:31 108/68 11/26/17 08:30 74 17 11/26/17 08:30 74 17 100 11/26/17 08:27 113/64 11/26/17 08:20 36.1 83 16 117/72 100 Oxymask 4 11/26/17 06:06 36.6 61 18 103/61 (75) 98 Room Air Notes Mental Status: alert / awake / arousable, participated in evaluation Pt Amnestic to Procedure: Yes Nausea / Vomiting: adequately controlled Pain: adequately controlled Airway Patency, RR, SpO2: stable & adequate BP & HR: stable & adequate Hydration State: stable & adequate Anesthetic Complications: no major complications apparent
[2017-11-26] MEDS: HYDROCODONE/ACETAMIN 5/325MG TAB PO PRN ×2 (09:41→17:40)
[2017-11-26] MEDS ORDERED: PROMETHAZINE HCL INJ 25 MG in SODIUM CHLORIDE 0.9% 50ML 50 ML IV PRN (11:00)
[2017-11-26] MEDS ORDERED: HYDROmorphone INJ 1 MG/ML SYR IV PRN (11:30)
[2017-11-26] MEDS ORDERED: HYDROmorphone INJ 0.5 MG/0.5 ML SYR IV PRN ×2 (11:30→12:30)
[2017-11-26] MEDS ORDERED: PROMETHAZINE HCL INJ 12.5 MG in SODIUM CHLORIDE 0.9% 50ML 50 ML IV PRN (11:30)
[2017-11-26] MEDS ORDERED: IV FLUIDS COMPLETED PRN (12:30)
[2017-11-26] MEDS: LACTATED RINGER'S 1000ML 1,000 ML IV SCH ×2 (13:24→23:26)
[2017-11-26] MEDS: KETOROLAC TROMETHAMINE 30 MG/ML VIAL IV. SCH ×3 (13:24→23:25)
[2017-11-27 03:45] VITALS: BP 93/56; PULSE 62; TEMP 36.6; O2SAT 98
[2017-11-27] MEDS: KETOROLAC TROMETHAMINE 30 MG/ML VIAL IV. SCH (05:16)
[2017-11-27 07:09] VITALS: BP 84/69; PULSE 72; TEMP 37; O2SAT 99
[2017-11-27 07:39] VITALS: BP 96/60
--- NOTE | 2017-11-27 07:44 | DISCHARGE SUMMARY ---
PRINCIPAL DIAGNOSES: Biliary colic and cholelithiasis. PROCEDURE: The patient underwent laparoscopic cholecystectomy. HISTORY OF PRESENT ILLNESS: The patient is a 22-year-old female who has been having relatively classic symptoms of biliary colic with right upper quadrant pain and nausea after eating. HOSPITAL COURSE: The patient was brought in the hospital on 11/26/2017 where she underwent elective laparoscopic cholecystectomy. Findings included very small, narrow cystic duct with fibrosis. She tolerated the procedure very well. However, postoperatively did have some nausea and vomiting, which did subside and she has done well overnight and is felt stable for discharge home today. To be followed in the surgical clinic within 1-2 weeks.
--- NOTE | 2017-11-27 08:21 | Anesthesiology Progress Note ---
Anesthesia Post Op Note Date & Time November 27, 2017 at 08:21 Vital Signs Pain Intensity: 0.0 Vital Signs Past 12 Hours Date Time Temp Pulse Resp B/P (MAP) Pulse Ox O2 Delivery O2 Flow Rate FiO2 11/27/17 07:39 96/60 (72) 11/27/17 07:20 Room Air 11/27/17 07:09 37.0 72 15 84/69 (74) 99 11/27/17 03:45 36.6 62 16 93/56 (68) 98 Room Air 11/26/17 23:35 Room Air 11/26/17 22:46 36.7 78 16 94/54 (67) 98 Room Air Notes Mental Status: alert / awake / arousable, participated in evaluation Pt Amnestic to Procedure: Yes Nausea / Vomiting: adequately controlled Pain: adequately controlled Airway Patency, RR, SpO2: stable & adequate BP & HR: stable & adequate Hydration State: stable & adequate Anesthetic Complications: no major complications apparent
[2017-11-27 09:31] VITALS: BP 96/60; PULSE 72; TEMP 37; O2SAT 99
== END 2017-11-27 09:58 | disposition home or self-care (01) ==
LOC: C.ACU 05:38 → C.MSN 11:02 → ENRESERV 11:17
PROVIDERS: ADMIT Surgery; ATTEND Surgery
DX: K80.50 Calculus of bile duct without cholangitis or cholecystitis without obstruction (principal); K80.20 Calculus of gallbladder without cholecystitis without obstruction; Z87.19 Personal history of other diseases of the digestive system; Z82.49 Family history of ischemic heart disease and other diseases of the circulatory system; Z82.3 Family history of stroke; Z83.3 Family history of diabetes mellitus